=== PATIENT | female | born 1950 | race Caucasian/White ===

== ENCOUNTER 2017-04-03 09:45 | Inpatient (IN) | payer MEDICARE ==
[~2017-04-03] VITALS: Ht 162.6 cm; Wt 59.0 kg
[~2017-04-03 09:45] MED LIST: BUDE10.2 IH; HYDR-2762 PO; HYDR-971 PO; IBUP200C9 PO; LEVO500T8 PO; LOSA100T6 PO; PRED50TA PO
[2017-04-03] MEDS ORDERED: IPRATRPIUM/ALBUTEROL 0.5/2.5MG 3 ML NEBU. ONE (09:55)
[2017-04-03 10:15] LABS: BASO # 0.1 x10^3/uL (0.0-0.2); BASO % 1 % (0-3); EOS % 2 % (0-3); HEMOGLOBIN 15.4 g/dL (12.0-15.5); LYMPH # 3.8 x10^3/uL (1.0-4.8); LYMPH % 36 % (24-48); MEAN CORPUSCULAR HEMOGLOBIN 31 pg (25-35); MEAN CORPUSCULAR HGB CONC 33 g/dL (31-37); MEAN CORPUSCULAR VOLUME 95 fL (79-100); MONO % 5 % (0-9); NEUT % 57 % (31-73); PLATELET COUNT 162 x10^3/uL (140-400); RED BLOOD COUNT 4.95 x10^6/uL (3.50-5.40); WHITE BLOOD COUNT 10.5 x10^3/uL (4.0-11.0)
[2017-04-03] MEDS ORDERED: ALBUTEROL SULFATE 2.5 MG/3 ML NEBU. NEB ONE (10:30)
[2017-04-03] MEDS ORDERED: predniSONE 10 MG TABLET PO ONE (10:30)
[2017-04-03] MEDS ORDERED: IPRATRPIUM/ALBUTEROL 0.5/2.5MG 3 ML NEBU. NEB ONE (10:30)
[2017-04-03 10:34] LABS: CALCIUM 9.1 mg/dL (8.5-10.1); CREATININE 1.1 mg/dL (0.6-1.0); GFR 49.7; POTASSIUM 4.4 mmol/L (3.5-5.1)
[2017-04-03 10:38] LABS: PROTHROMBIN TIME PATIENT 12.9 SEC (11.7-14.0)
[2017-04-03 10:40] LABS: ALBUMIN 3.8 g/dL (3.4-5.0); ALBUMIN/GLOBULIN RATIO 1.1 (1.0-1.7); MAGNESIUM 2.1 mg/dL (1.8-2.4); TOTAL BILIRUBIN 0.9 mg/dL (0.2-1.0); TOTAL PROTEIN 7.3 g/dL (6.4-8.2)
--- NOTE | 2017-04-03 10:44 | EKG ---
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
--- NOTE | 2017-04-03 10:46 | RAD ---
Portable chest, 04/03/2017: History: Shortness of breath, congestive heart failure Comparison is made to a study from 01/25/2015. The heart size and pulmonary vascularity are normal. No pulmonary infiltrates are seen. There is no evidence of pleural fluid. Mild spurring is present in the spine. IMPRESSION: No acute cardiopulmonary abnormality is detected.
[2017-04-03] MEDS ORDERED: ACETAMINOPHEN 500 MG TABLET PO ONE (12:30)
[2017-04-03 12:48] VITALS: BP 116/75
[2017-04-03 12:49] VITALS: BP 116/75
[2017-04-03] MEDS ORDERED: FLUT1DIS3 IH (13:26)
[2017-04-03] MEDS ORDERED: ASPI-630 PO (13:26)
[2017-04-03] MEDS ORDERED: ATORVASTATIN CA80 MG PO (13:26)
[2017-04-03] MEDS ORDERED: METO-239 PO (13:26)
[2017-04-03] MEDS ORDERED: RAMI2.5C PO (13:26)
[2017-04-03] MEDS ORDERED: IOHEXOL 300 MG/ML 75 ML VIAL IV ONE (13:30)
[2017-04-03] MEDS ORDERED: CONTRAST GIVEN MC PRN (13:45)
--- NOTE | 2017-04-03 13:47 | CONS ---
DATE OF CONSULTATION: ATTENDING PHYSICIAN: Dr. Renee. REASON FOR CONSULTATION: Syncope, COPD. HISTORY OF PRESENT ILLNESS: The patient is a pleasant 66-year-old female with history of tobacco use for 40 years and continues to smoke cigarettes and has underlying COPD. She is not on home oxygen. She was brought into the hospital after she had a syncopal episode. She was seen by her who initially had heard that she was moaning, and then, she could not follow any more commands and then lost consciousness. She was brought in to the ER by EMS. At present, she is fully awake, following commands. She is on room air. Her blood sugars were not low. Her chest x-ray did not reveal any acute infiltrates. The patient had a similar episode happened seven months ago. At that time, she was evaluated at and according to the patient, she had extensive workup and could not find any etiology. She declined to have an ABG done. She said she even had a cardiac cath at , and Dr. Renee has all the records. PAST MEDICAL HISTORY: Significant for COPD, suspect moderate to severe. History of hypertension. History of a lung nodule, being followed up and stable in 2016. History of rheumatic fever in childhood. PAST SURGICAL HISTORY: Appendectomy, hysterectomy, knee surgery and back surgery. ALLERGIES: None to any medications. REVIEW OF SYSTEMS: Twelve-point systems obtained, pertinent positives discussed in my history of present illness, otherwise noncontributory. All systems that were negative were reviewed as well. SOCIAL HISTORY: Smoker for 40 years and continues to smoke cigarettes a pack per day. FAMILY HISTORY: Noncontributory to lungs. PHYSICAL EXAMINATION: GENERAL: She is awake, following commands. No obvious respiratory distress. VITAL SIGNS: She is currently on room air. Blood pressure 116/75, afebrile, pulse ox 98% on room air. NECK: Supple. LUNGS: Clear. CARDIOVASCULAR: Regular rate and rhythm. ABDOMEN: Soft, nontender. EXTREMITIES: No pitting edema. LABORATORY DATA: Reviewed. White cell count 10.5, hemoglobin is 15.4 and platelets are 162. BUN 11, creatinine 1.1. IMPRESSION: 1. Syncopal episode of unclear etiology. Similar occurrences happened 7 months ago when she was evaluated at , and according to the patient's history, a thorough workup was performed including cardiac catheterization and no etiology was obvious. At present, her blood sugars are normal. I do not suspect that she has hypercarbia as her bicarbonate level was normal, although she does decline to have ABGs. Clinically, it does not look like a stroke as she has no focal weakness. Thromboembolic disease would be in the differential diagnosis, but clinically less likely, but will obtain V/Q scan. 2. History of a stable nodule, being followed up by Dr. Renee. I reviewed the last CT chest in 2015. The radiologist reported a small nodule in the left lower lobe. We will follow another CT chest RECOMMENDATIONS: 1. Obtain CTA chest to rule out any thromboembolic disease which may have contributed to a syncopal episode and to f/u on nodule LLL 2. Obtain records from to see the workup that was performed for syncope at that institution. 3. Continue bronchodilators. 4. Smoking cessation counseling provided, but she declines to quit cigarettes. 5. PFTs as an outpatient. 6. Consider cardiology evaluation for syncope. 7. Also consider neurology consultation for workup of syncope. 8. Discussed with the patient's and will follow along with you. Discussed with RN. KEEGAN MONTAGUE MD DR: RANDALL/theodora JOB#: [id number] / [id number] MARY
[2017-04-03 14:53] VITALS: BP 107/52
--- NOTE | 2017-04-03 15:04 | RAD ---
PQRS Compliance Statement: One or more of the following individualized dose reduction techniques were utilized for this examination: 1. Automated exposure control 2. Adjustment of the mA and/or kV according to patient size 3. Use of iterative reconstruction technique CTA of the chest with contrast, 04/03/2017: History: Shortness of breath, syncope Multidetector CT imaging was performed following an IV bolus injection of iodinated contrast material. Multiplanar reconstructions were produced including coronal MIP images. Comparison is made to a study from 01/28/2016. The central pulmonary arteries are well opacified and no filling defects are seen to suggest pulmonary emboli. There is mild calcific plaquing of the thoracic aorta without evidence of aneurysm. Minimal coronary artery calcifications are noted. There are calcified mediastinal and right hilar lymph nodes compatible with granulomatous disease. No pathologically enlarged mediastinal nodes are seen. There are emphysematous changes in the lungs. There are granulomatous calcifications in the right chest. Mild bilateral apical pleural-parenchymal opacities are probably scars. There is minimal new streaky atelectasis or scarring medially in the left lower lobe. A tiny 3 mm nodule described in the left lower lobe on the previous study is unchanged. There is no evidence of pleural fluid. There are moderate scattered degenerative changes in the spine. IMPRESSION: 1. No CT evidence of central pulmonary emboli. 2. Emphysema with mild bilateral pleural/parenchymal scarring.
--- NOTE | 2017-04-03 15:38 | PHYS DOC ---
Past Medical History Past Medical History: CHF, COPD, Hypertension, Other Additional Past Medical Histor: RHEUMATIC FEVER (CHILDHOOD) Past Surgical History: Appendectomy, Hysterectomy, Other Additional Past Surgical Histo: KNEE SURGERY, BACK SURGERY 2X, Alcohol Use: None Drug Use: None Adult General Chief Complaint Chief Complaint: DYSPNEA/RESPIRATOY DISTRESS HPI HPI Patient is a 66 year old female who presents with shortness of breath. Pt reports she couldn't catch her breath this morning and brought in by EMS. Initially the report was for shortness of breath alone, but then reports that this morning the patient was acting strange and not responding to him appropriately. Pt reports she does not report this happening and didn't remember getting into the ambulance. First memory was while in the ambulance. Pt with mild cough, increasing recent SOB, continues to smoke, h/o COPD but doesn't wear home oxygen. Review of Systems Review of Systems Constitutional: Denies fever or chills [] Eyes: Denies change in visual acuity, redness, or eye pain [] HENT: Denies nasal congestion or sore throat [] Respiratory:reports sob Cardiovascular: denies chest pain GI: Denies abdominal pain, nausea, vomiting, bloody stools or diarrhea [] : Denies dysuria or hematuria [] Musculoskeletal: Denies back pain or joint pain [] Integument: Denies rash or skin lesions [] Neurologic: Denies headache, focal weakness or sensory changes [] Current Medications Current Medications Current Medications Medications (Trade) Dose Ordered Sig/Arturo Start Time Stop Time Status Last Admin Dose Admin Albuterol Sulfate (Ventolin Neb Soln) 2.5 mg 1X ONCE 04/03/17 10:30 04/03/17 10:31 DC 04/03/17 10:04 2.5 MG Albuterol/ Ipratropium (Duoneb) 3 ml 1X ONCE 04/03/17 10:30 04/03/17 10:31 DC Prednisone (Prednisone) 50 mg 1X ONCE 04/03/17 10:30 04/03/17 10:31 DC 04/03/17 10:40 50 MG Allergies Allergies Allergies Coded Allergies Type Severity Reaction Last Updated Verified No Known Drug Allergies 05/05/14 No Physical Exam Physical Exam Constitutional: Well developed, well nourished,anxious, tachypnic HENT: Normocephalic, atraumatic, bilateral external ears normal, oropharynx moist, no oral exudates, nose normal. [] Eyes: PERRLA, EOMI, conjunctiva normal, no discharge. [] Neck: Normal range of motion, no tenderness, supple, no stridor. [] Cardiovascular:Heart rate regular rhythm, no murmur [] Lungs & Thorax: Bilateral breath sounds, moderate air movement, exp wheeze Abdomen: Bowel sounds normal, soft, no tenderness, no masses, no pulsatile masses. [] Skin: Warm, dry, no erythema, no rash. [] Back: No tenderness, no CVA tenderness. [] Extremities: No tenderness, no cyanosis, no clubbing, ROM intact, no edema. [] Neurologic: Alert and oriented X 3, normal motor function, normal sensory function, no focal deficits noted. [] Psychologic: Affect normal, judgement normal, mood normal. [] Current Patient Data Vital Signs Vital Signs Date Time Temp Pulse Resp B/P (MAP) Pulse Ox O2 Delivery O2 Flow Rate FiO2 04/03/17 11:15 99 119/65 (83) 99 Room Air 04/03/17 10:12 97.6 32 97.6 Lab Values Laboratory Tests Test 04/03/17 10:05 White Blood Count 10.5 x10^3/uL (4.0-11.0) Red Blood Count 4.95 x10^6/uL (3.50-5.40) Hemoglobin 15.4 g/dL (12.0-15.5) Hematocrit 47.0 % (36.0-47.0) Mean Corpuscular Volume 95 fL (79-100) Mean Corpuscular Hemoglobin 31 pg (25-35) Mean Corpuscular Hemoglobin Concent 33 g/dL (31-37) Red Cell Distribution Width 15.0 % (11.5-14.5) H Platelet Count 162 x10^3/uL (140-400) Neutrophils (%) (Auto) 57 % (31-73) Lymphocytes (%) (Auto) 36 % (24-48) Monocytes (%) (Auto) 5 % (0-9) Eosinophils (%) (Auto) 2 % (0-3) Basophils (%) (Auto) 1 % (0-3) Neutrophils # (Auto) 6.0 x10^3uL (1.8-7.7) Lymphocytes # (Auto) 3.8 x10^3/uL (1.0-4.8) Monocytes # (Auto) 0.5 x10^3/uL (0.0-1.1) Eosinophils # (Auto) 0.2 x10^3/uL (0.0-0.7) Basophils # (Auto) 0.1 x10^3/uL (0.0-0.2) Prothrombin Time 12.9 SEC (11.7-14.0) Prothrombin Time INR 1.0 (0.8-1.1) Sodium Level 142 mmol/L (136-145) Potassium Level 4.4 mmol/L (3.5-5.1) Chloride Level 105 mmol/L (98-107) Carbon Dioxide Level 27 mmol/L (21-32) Anion Gap 10 (6-14) Blood Urea Nitrogen 11 mg/dL (7-20) Creatinine 1.1 mg/dL (0.6-1.0) H Estimated GFR (Cockcroft-Gault) 49.7 BUN/Creatinine Ratio 10 (6-20) Glucose Level 149 mg/dL (70-99) H Calcium Level 9.1 mg/dL (8.5-10.1) Magnesium Level 2.1 mg/dL (1.8-2.4) Total Bilirubin 0.9 mg/dL (0.2-1.0) Aspartate Amino Transferase (AST) 30 U/L (15-37) Alanine Aminotransferase (ALT) 41 U/L (14-59) Alkaline Phosphatase 141 U/L (46-116) H LE-Jjl-B-Type Natriuretic Peptide 466 pg/mL (0-124) H Total Protein 7.3 g/dL (6.4-8.2) Albumin 3.8 g/dL (3.4-5.0) Albumin/Globulin Ratio 1.1 (1.0-1.7) Laboratory Tests 04/03/17 10:05 Laboratory Tests 04/03/17 10:05 EKG EKG 84 bpm, sinus, normal axis, normal intervals, no ST elevation or depression, noNischemic T waves, interpreted by me[] Radiology/Procedures Radiology/Procedures CXR: IMPRESSION: No acute cardiopulmonary abnormality is detected. [] Course & Med Decision Making Course & Med Decision Making Pertinent Labs and Imaging studies reviewed. (See chart for details) She was continued on breathing treatments and given prednisone. Her symptoms appeared to significantly improved. No acute findings on ED workup. then gave a different story of what occurred this morning other than just shortness of breath. The patient reportedly was altered and unresponsive and patient does not recall what happened on the way to the hospital until she was in the ambulance. I don't know if the patient had a syncopal episode, I spoke with Dr. Torres who accepted this patient for admission and recommended a pulmonary consult. Dragon Disclaimer Dragon Disclaimer This electronic medical record was generated, in whole or in part, using a voice recognition dictation system. Departure Departure Impression: Primary Impression: COPD (chronic obstructive pulmonary disease) Disposition: ADMITTED INPATIENT Condition: STABLE Referrals: ALLEN TORRES MD (PCP) KE WALLACE MD Apr 03, 2017 15:38
[2017-04-03 19:25] VITALS: BP 106/65
[2017-04-03 23:30] VITALS: BP 112/64
[2017-04-04 03:35] VITALS: BP 115/66
[2017-04-04 07:33] VITALS: BP 122/75
--- NOTE | 2017-04-04 10:38 | PDOC ---
GENERAL General: see dictated H&P. encephalopathy at home prior to admission with cause unclear. similar to episode earlier this year at [facility] with negative marroquin and apparently included heart cath that was normal and normal carotid dopplers per patient. trying to get those records currently. cardiology consulted for elevated troponin and neurology for encephalopathy. Problems: VITAL SIGNS Vital Signs: Vital Signs Date Time Temp Pulse Resp B/P (MAP) Pulse Ox O2 Delivery O2 Flow Rate FiO2 04/04/17 08:00 Room Air 04/04/17 07:33 98.1 65 18 122/75 (91) 97 98.1 ALLERGIES Allergies: Allergies Coded Allergies Type Severity Reaction Last Updated Verified No Known Drug Allergies 05/05/14 No MEDS Medications: Current Medications Medications (Trade) Dose Ordered Sig/Arturo Start Time Stop Time Status Last Admin Dose Admin Acetaminophen (Tylenol) 1,000 mg 1X ONCE 04/03/17 12:30 04/03/17 12:31 DC Albuterol Sulfate (Ventolin Neb Soln) 2.5 mg 1X ONCE 04/03/17 10:30 04/03/17 10:31 DC 04/03/17 10:04 2.5 MG Albuterol/ Ipratropium (Duoneb) 3 ml RTQID 04/04/17 12:00 Info (Do NOT chart on this entry -- for MONITORING) 1 each PRN DAILY PRN 04/03/17 13:45 04/05/17 13:44 Iohexol (Omnipaque 300 Mg/ml) 60 ml 1X ONCE 04/03/17 13:30 04/03/17 13:31 DC Prednisone (Prednisone) 50 mg 1X ONCE 04/03/17 10:30 04/03/17 10:31 DC 04/03/17 10:40 50 MG LAB Lab: Laboratory Tests Test 04/03/17 18:30 04/04/17 00:05 04/04/17 04:00 Troponin I Quantitative 2.561 ng/mL (0.000-0.055) 2.274 ng/mL (0.000-0.055) 1.978 ng/mL (0.000-0.055) ALLEN TORRES MD Apr 04, 2017 10:38
[2017-04-04] MEDS: IPRATRPIUM/ALBUTEROL 0.5/2.5MG 3 ML NEBU. NEB SCH ×3 (10:59→19:42)
[2017-04-04 11:00] VITALS: BP 118/65
[2017-04-04] MEDS: LISINOPRIL 5 MG TABLET. PO SCH (11:00)
--- NOTE | 2017-04-04 11:02 | PDOC2 ---
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 She denies any memory of the event or preceding symptoms. Her last memory was getting up the the restroom but not feeling like being up for the day so going back to bed. He reports that she had gotten up and heard her moving around then some time later he thought he heard her moaning so went to check. He found her in bed, not purposefully responsive initially and saying help me over and over. He reports attempting to sit her up but she was unable to even follow simple commands. He then called EMS. He says she was sweaty and clammy and with shallow rapid respirations. She apparently had a similar episode about 7 months ago for which she was evaluated at . She reports being told that her heart was weak and probably caused by a virus but improved before she left. She reports a normal heart cath and EEG during that admission. She followed up once outpatient but has not gone back. She reports dyspnea on exertion usually improved with inhalers. She reports 2 pillow orthopnea but has chronically slept on 2 pillows due to sinus drainage. Her reports she does snore but no history of witnessed apnea. She denies any palpitations, lightheadedness or syncope other than the above episodes. PAST MEDICAL HISTORY Past Medical History COPD, lung nodule, rheumatic fever as a child PAST SURGICAL HISTORY Past Surgical History: Appendectomy, Hysterectomy, Other (knee and back surgery ) SOCIAL HISTORY Social History + tobaccoism, no significant ETOH, no illicit drugs CURRENT MEDICATIONS CURRENT MEDICATIONS Home cardiac meds include metoprolol, aspirin, atorvastatin, ramipril ALLERGIES ALLERGIES: Coded Allergies: No Known Drug Allergies (Unverified , 05/05/14) ROS Review of System as per HPI PHYSICAL EXAM General: Alert, Oriented X3, Cooperative, No acute distress HEENT: Atraumatic, EOMI, Mucous membr. moist/pink Lungs: Other (decreased bilaterally) Heart: Regular rate, Normal S1, Normal S2, Other (no gallops, no significant murmurs, no clicks or rubs) Abdomen: Normal bowel sounds, Soft, No tenderness Extremities: No cyanosis, No edema, Normal pulses Neuro: Normal speech, Strength at 5/5 X4 ext Psych/Mental Status: Mental status NL, Mood NL VITALS VITALS Vital Signs Date Time Temp Pulse Resp B/P (MAP) Pulse Ox O2 Delivery O2 Flow Rate FiO2 04/04/17 08:00 Room Air 04/04/17 07:33 98.1 65 18 122/75 (91) 97 98.1 LABS Lab: Laboratory Tests Test 04/03/17 18:30 04/04/17 00:05 04/04/17 04:00 Troponin I Quantitative 2.561 ng/mL (0.000-0.055) 2.274 ng/mL (0.000-0.055) 1.978 ng/mL (0.000-0.055) IMAGES IMAGES CXR - no acute disease CT - no PE, emphysema with mild bilateral scarring EKG EKG sinus rhythm without acute abn. ASSESSMENT/PLAN ASSESSMENT/PLAN 1. NSTEMI 2. Syncope 3. hypertension 4. hyperlipidemia 5. COPD Based on her history suspect non ischemic cardiomyopathy. Will request records and repeat echocardiogram. Possible syncopal episodes related to arrhythmias. Await echo but would at the least need an outpatient event monitoring. If EF remains low would need life vest and/or AICD. Continue current medications and await records. Problems: NAE DHILLON MD 04/04/17 1811: CARDIAC CONSULT ALLERGIES ALLERGIES: Coded Allergies: No Known Drug Allergies (Unverified , 05/05/14) ASSESSMENT/PLAN ASSESSMENT/PLAN Pt. seen and examined. Agree with above SEMICONDUCTOR DIES LOADER note. Reviewed [facility] records from 08/2016. NICM. ? Takatsubo. Await echo here. Continue home meds. Monitor on Tele. Likely needs to be discharged on lifevest given cardiomyopathy and syncope. Will follow along. Thanks for consult. Problems: WENDIE ALVARADO APRN Apr 04, 2017 11:02 NAE DHILLON MD Apr 04, 2017 18:11
[2017-04-04] MEDS: BUDESONIDE 0.5 MG/2 ML NEBU. NEB SCH ×2 (11:56→19:42)
[2017-04-04] MEDS ORDERED: ALBUTEROL SULFATE 2.5 MG/3 ML NEBU. NEB SCH (12:00)
[2017-04-04] MEDS: ASPIRIN CHEWABLE 81 MG TABLET. PO SCH (12:13)
[2017-04-04] MEDS: METOPROLOL SUCC 24HR ER 25 MG TAB.ER.24H. PO SCH (12:13)
--- NOTE | 2017-04-04 13:22 | HP ---
ADMIT DATE: 04/03/2017 CHIEF COMPLAINT AND HISTORY OF PRESENT ILLNESS: This 66-year-old white female is well known to me from followup in the office. The patient was admitted through the Emergency Room with shortness of breath and respiratory distress. Briefly, the patient had gotten up at 8:00 a.m., on the morning of admission to urinate and had been fine. Her found her in bed, not too long after that unresponsive and short of breath. She had a similar episode months ago, worked up at , which at that time at least included a heart catheterization, which was reported normal per the family. She states she does not remember the EMS being at the home, but does remember may be a coming on the ambulance to the Emergency Room with them telling her to slow down her breathing and breathe deep as they were placing an IV. She has recovered from mental status and had pretty unremarkable workup in the Emergency Room, although her troponin has bumped up since admission. PAST MEDICAL HISTORY: Remarkable for COPD, hypertension, history of congestive heart failure. She has a history of rheumatic fever as a child. PAST SURGICAL HISTORY: Remarkable for prior knee surgery, back surgery, appendectomy, hysterectomy. MEDICATIONS: Brought with the patient, listed on the computer and have been addressed. ALLERGIES: She has no known drug allergies. SOCIAL HISTORY: She is a daily smoker, nondrinker, does not use drugs. , lives at home with her . FAMILY HISTORY: Noncontributory. REVIEW OF SYSTEMS: Remarkable primarily for some shortness of breath and a cough leading up to this, she feels like she has had more of a cough than usual, but otherwise has been in her regular state with no review of systems findings otherwise. PHYSICAL EXAMINATION: GENERAL: She is a well-developed, well-nourished white female, in no acute distress. VITAL SIGNS: Stable. She is afebrile. HEAD, EYES, EARS, NOSE AND THROAT: Unremarkable. NECK: Supple without adenopathy or thyromegaly. CHEST: Reveals decreased breath sounds, but clear. HEART: Regular rate and rhythm without S3, S4 or murmur. ABDOMEN: Soft, nontender, without hepatosplenomegaly or mass. EXTREMITIES: Without cyanosis, clubbing or edema. NEUROLOGIC: She is intact. IMPRESSION: Encephalopathic spell of uncertain etiology at this point in time with associated shortness of breath. She has had a bump in her troponin since admission, but again a story with a normal heart cath apparently at . PLAN: The patient has been admitted. Pulmonary and Cardiology have been consulted. I am going to ask Neurology to see her in addition. We are going to obtain records from to better what happened over the real issue, and the patient will be monitored, managed and treated appropriately. ALLEN TORRES MD DR: JACKELYN/theodora JOB#: [id number] / [id number]
[2017-04-04 15:25] VITALS: BP 117/63
--- NOTE | 2017-04-04 17:06 | PDOC ---
PULMONARY PROGRESS NOTES Subjective PT AT TIMES SOA Vitals Vital Signs Date Time Temp Pulse Resp B/P (MAP) Pulse Ox O2 Delivery O2 Flow Rate FiO2 04/04/17 15:25 98.1 68 18 117/63 (81) 96 Room Air 98.1 ROS: No Nausea, No Chest Pain, No Abdominal Pain, No Increase Cough Lungs: Wheezing Cardiovascular: S1, S2 Abdomen: Soft, Non-tender Neuro Exam: Alert Extremities: No Edema Skin: Warm Labs Laboratory Tests Test 04/03/17 10:05 04/03/17 18:30 04/04/17 00:05 04/04/17 04:00 White Blood Count 10.5 x10^3/uL (4.0-11.0) Red Blood Count 4.95 x10^6/uL (3.50-5.40) Hemoglobin 15.4 g/dL (12.0-15.5) Hematocrit 47.0 % (36.0-47.0) Mean Corpuscular Volume 95 fL (79-100) Mean Corpuscular Hemoglobin 31 pg (25-35) Mean Corpuscular Hemoglobin Concent 33 g/dL (31-37) Red Cell Distribution Width 15.0 % (11.5-14.5) Platelet Count 162 x10^3/uL (140-400) Neutrophils (%) (Auto) 57 % (31-73) Lymphocytes (%) (Auto) 36 % (24-48) Monocytes (%) (Auto) 5 % (0-9) Eosinophils (%) (Auto) 2 % (0-3) Basophils (%) (Auto) 1 % (0-3) Neutrophils # (Auto) 6.0 x10^3uL (1.8-7.7) Lymphocytes # (Auto) 3.8 x10^3/uL (1.0-4.8) Monocytes # (Auto) 0.5 x10^3/uL (0.0-1.1) Eosinophils # (Auto) 0.2 x10^3/uL (0.0-0.7) Basophils # (Auto) 0.1 x10^3/uL (0.0-0.2) Prothrombin Time 12.9 SEC (11.7-14.0) Prothromb Time International Ratio 1.0 (0.8-1.1) Sodium Level 142 mmol/L (136-145) Potassium Level 4.4 mmol/L (3.5-5.1) Chloride Level 105 mmol/L (98-107) Carbon Dioxide Level 27 mmol/L (21-32) Anion Gap 10 (6-14) Blood Urea Nitrogen 11 mg/dL (7-20) Creatinine 1.1 mg/dL (0.6-1.0) Estimated GFR (Cockcroft-Gault) 49.7 BUN/Creatinine Ratio 10 (6-20) Glucose Level 149 mg/dL (70-99) Calcium Level 9.1 mg/dL (8.5-10.1) Magnesium Level 2.1 mg/dL (1.8-2.4) Total Bilirubin 0.9 mg/dL (0.2-1.0) Aspartate Amino Transf (AST/SGOT) 30 U/L (15-37) Alanine Aminotransferase (ALT/SGPT) 41 U/L (14-59) Alkaline Phosphatase 141 U/L (46-116) YW-Cqv-B-Type Natriuretic Peptide 466 pg/mL (0-124) Total Protein 7.3 g/dL (6.4-8.2) Albumin 3.8 g/dL (3.4-5.0) Albumin/Globulin Ratio 1.1 (1.0-1.7) Troponin I Quantitative 2.561 ng/mL (0.000-0.055) 2.274 ng/mL (0.000-0.055) 1.978 ng/mL (0.000-0.055) Test 04/04/17 10:29 Troponin I Quantitative 2.108 ng/mL (0.000-0.055) Laboratory Tests Test 04/03/17 18:30 04/04/17 00:05 04/04/17 04:00 04/04/17 10:29 Troponin I Quantitative 2.561 ng/mL (0.000-0.055) 2.274 ng/mL (0.000-0.055) 1.978 ng/mL (0.000-0.055) 2.108 ng/mL (0.000-0.055) Medications Active Scripts Medications Dose Route/Sig Max Daily Dose Days Date Category Atorvastatin Calcium 80 Mg Tablet 80 Mg PO HS 04/03/17 Reported Metoprolol Succinate ( Xl ) (Metoprolol Succinate) 25 Mg Tab.er.24h 1 Tab PO DAILY 04/03/17 Reported Ramipril 2.5 Mg Capsule 1 Cap PO DAILY 04/03/17 Reported Aspirin 81 Mg Tab.chew 1 Tab PO DAILY 04/03/17 Reported Advair 250-50 Diskus (Fluticasone/Salmeterol) 1 Each Disk.w.dev 1 Puff IH BID 04/03/17 Reported Impression . IMPRESSION: 1. Syncope 2. History of a stable nodule, being followed up by Dr. Renee. I reviewed the last CT chest in 2015. 3. AECOPD CT CHEST 1. No CT evidence of central pulmonary emboli. 2. Emphysema with mild bilateral pleural/parenchymal scarring. Plan . 1. Obtain CTA REVIEWED NO PE NO NODULES 2. D/C SMOKING 3. Continue bronchodilators. 4. Smoking cessation counseling provided, but she declines to quit cigarettes. 5. PFTs as an outpatient. ANNIE MITCHELL MD Apr 04, 2017 17:06
[2017-04-04 19:21] VITALS: BP 118/70
[2017-04-04] MEDS ORDERED: NON FORMULARY ITEM (Fluticasone/Salmeterol (Advair 250-50 Diskus) 1 PUFF) IH SCH (21:00)
[2017-04-04] MEDS ORDERED: ATORVASTATIN CALCIUM 40 MG TABLET. PO SCH (21:00)
[2017-04-04 22:18] VITALS: BP 114/63
--- NOTE | 2017-04-05 00:49 | CONS ---
DATE OF CONSULTATION: 04/04/2017 REFERRING PHYSICIAN: Dr. Renee. REASON FOR CONSULTATION: Episode of syncope, evaluate for stroke. HISTORY OF PRESENT ILLNESS: The patient is a very pleasant 66-year-old woman who presented through the Emergency Room last night. Both she and her were valuable historians. She remembers going to bed last night without any extenuating circumstance. She awoke in the night to go to the bathroom, which she did without any difficulty. She awoke at 8:00 a.m. to the smell of her brewing coffee. She got up and decided that she really did not want to be up at this hour and went and lied back down. Her heard moaning noises coming from the bedroom. He went back into the bedroom to see if something was wrong. He noted that she was thrashing about. She was stating "help me help me" and was incoherent. She was clammy and sweaty and had been incontinent of urine. Her breathing was very rapid. He called 911 and paramedics arrived. Her first memory is waking up in the ambulance, but memories were spotty. She also remembers being in the Emergency Room, but the memories were somewhat spotty. The last memory before waking up in the ambulance was deciding to go back to bed at 8:00 a.m. She is not aware of any extenuating circumstance. Of note is that she had a similar spell 7 months ago. She was at [facility]. They were kind enough to send records, which I reviewed. She underwent extensive cardiac investigation including a cardiac catheterization. She did have a cardiomyopathy, which was felt to be nonischemic. Her cardiac did improve and her explanation is that she had had a virus that had affected her heart temporarily. She also underwent a CAT scan and 2 MRI of her brain. The MRI of the brain was abnormal revealing prior strokes of the right casillas radiata, right parietal cortical region and bilateral cerebellar regions. The first MRI was performed on 09/04/2016 with the second being performed on 09/08/2016. The second MRI showed no interval change. This was also performed along with an MRA of the head and neck, which did not reveal aneurysm or any critical stenosis. She believes she had an EEG, but I did not see the result of that with the records that were sent. Of note is that her initial lactic acid was elevated to 6. She is completely back to normal and was so by the time her arrived in the Emergency Room. There was no tongue biting. PAST MEDICAL HISTORY: 1. Admitted the [facility] in August 2016 with the spell of syncope. 2. Chronic obstructive pulmonary disease. 3. Spells of dizziness, which improved after she started inhalers for the chronic obstructive pulmonary disease. 4. Hypertension. 5. History of nonischemic cardiomyopathy with congestive heart failure. 6. History of rheumatic fever as a child. 7. Prior knee surgery. 8. Prior lower back surgery. 9. Appendectomy. 10. Hysterectomy. ALLERGIES: No known allergies to drugs. MEDICATIONS PRIOR TO ADMISSION: Aspirin 81 mg, atorvastatin 80 mg, Advair twice per day, metoprolol and ramipril 2.5 mg. FAMILY HISTORY: Her mother of lung cancer. Her father of prostate cancer. Her brother of bladder cancer. Heart disease runs strongly on the mother side of the family. SOCIAL HISTORY: She is . She smokes a pack of cigarettes per day. She does not drink alcohol or use recreational drugs. She has 2 children, 3 grandchildren and 3 great grandchildren. REVIEW OF SYSTEMS: She has a headache, but it is not unusual, occasionally have headaches. She has had no change of vision or hearing. She has not had any cognitive changes other than associated with the spells. She does not have any nose or sinus trouble. She has been able to swallow, but big pills are more difficult. She has had shortness of breath with exertion. She does not have chest or abdominal pain. 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 She has lower back pain. She has not had any fever or rash. She denies any gastrointestinal or genitourinary complaints. She does not complain of easy bruising or bleeding. She does not normally have swelling. She denies any psychiatric concerns. She does not complain of any focal weakness or numbness. PHYSICAL EXAMINATION: VITAL SIGNS: The blood pressure 117/63, pulse 68, respirations 18, temperature 98.1 degrees Fahrenheit. Oximetry was 96% on room air. Her weight was 130 pounds with a height of 64 inches and a calculated body mass index of 22.3. NEUROLOGIC: She was alert, awake and cooperative. Speech was fluent and clear. She had a good fund of recent and remote knowledge. Attention and concentration was intact. She appeared well-groomed and well-nourished. She was fully oriented. Examination of the cranial nerves revealed visual arnold were full to confrontation. Extraocular movements were intact. The eyes were conjugate. Pursuit movements were smooth and saccadic eye movements were without dysmetria. Pupils were 3 mm and reactive. Funduscopic exam did not reveal papilledema, exudate or hemorrhage. Facial sensation was intact bilaterally. The muscles of mastication and facial expression were powerful symmetrically. Hearing was intact to finger rub. The palate arched symmetrically and the tongue was midline with full range of motion. Sternocleidomastoid and trapezius were powerful. Muscle bulk and tone was normal. There was no arm or leg drift. The power was full and symmetric in the upper and lower extremities. Reflexes were 2/4 and symmetric in the upper extremities and at the knees, but were absent at both ankles. The toes were downgoing bilaterally. Coordination testing with [id number], dslw-ve-oqvy, fine motor and rapid alternating movements were well performed. Sensory exam was intact to pain, light touch, proprioception, graphesthesia, cold thermal and vibration. There was no extinction to double simultaneous stimulation. The gait was of a normal base and was steady. She was able to heel and toe walk. She could take several steps and tandem. Romberg stance was negative. Auscultation of the carotid arteries did not reveal a bruit. HEART: Rhythm was regular without a murmur. EXTREMITIES: Peripheral pulses were symmetric. There was no edema or cyanosis of the extremities. REVIEW OF LABORATORY DATA: CBC revealed a normal white blood cell count, hemoglobin, hematocrit and platelet count. BNP was elevated at 466. Troponin was elevated to 2.561. PT/INR was 1 and PTT was 12.9. The electrolytes were normal. BUN was 11 and creatinine elevated at 1.1. The GFR calculated at 49.7. Glucose was elevated at 149. ____ and magnesium were normal. Alkaline phosphatase was elevated at 141. The total protein and albumin were normal. Chest x-ray revealed no acute cardiopulmonary process. CTA of the chest revealed no pulmonary embolus. There was emphysema and mild bilateral pleural/parenchymal scarring. IMPRESSION: The patient is a pleasant 66-year-old woman who has now had 2 spells of syncope followed by confusion. The most recent spell is very suspicious for unwitnessed seizure. She may have had a brief generalized seizure followed by postictal confusion. She was incontinent of urine, although there was no tongue biting. The initial spell seemed to be associated with a cardiomyopathy as well. This seemed to recover in a number of days. An echocardiogram is planned, but is pending at the time of this dictation. She has previously undergone 2 MRI of her brain, 1 on the 04 of September and the other on the . These revealed evidence of some small strokes, but nothing acute. There was no evidence of tumor. She reports an EEG that was not revealing. Unfortunately, the spells were 7 months apart, so it would be difficult to know if medication were affective with such a time between spells. RECOMMENDATIONS: I can order an EEG for Thursday if she is still an inpatient to evaluate for seizure. If she has been dismissed, this could be done as an outpatient. I will await the remainder of the investigation before determining if we want to empirically initiate an anticonvulsant. I would consider medications such as levetiracetam 500 mg twice per day. Obtain an MRI brain with and without contrast to evaluate for acute tumor or other intracranial process. We can obtain orthostatic blood pressure measurements as well. I will await the result of the echocardiogram. I appreciate being involved in her care. JACQUELINE MCCONNELL MD DR: MONA/theodora JOB#: [id number] / [id number] Dr. Naz [address]ays Dr.
[2017-04-05 02:48] VITALS: BP 124/55
--- NOTE | 2017-04-05 06:41 | PDOC ---
Provider Note Provider Note Case discussed with Dr. Betancourt from neurology. High suspicion for seizure activity. Does not appear to be arrhythmogenic at this time. No arrhythmias on tele. If EF is normalized by echo, can be discharged from cardiology perspective with close outpt f/u. If EF is still low , then will mail her a event monitor to rule out arrhythmias. NAE DHILLON MD Apr 05, 2017 06:41
[2017-04-05 07:00] VITALS: BP 104/63
[2017-04-05] MEDS: IPRATRPIUM/ALBUTEROL 0.5/2.5MG 3 ML NEBU. NEB SCH ×2 (07:58→11:43)
[2017-04-05] MEDS: BUDESONIDE 0.5 MG/2 ML NEBU. NEB SCH (07:58)
[2017-04-05] MEDS: ASPIRIN CHEWABLE 81 MG TABLET. PO SCH (08:50)
[2017-04-05] MEDS: LISINOPRIL 5 MG TABLET. PO SCH (08:51)
[2017-04-05] MEDS: METOPROLOL SUCC 24HR ER 25 MG TAB.ER.24H. PO SCH (08:51)
[2017-04-05 11:00] VITALS: BP 116/63
--- NOTE | 2017-04-05 12:27 | PDOC ---
GENERAL General: vss and afebile. awake and alert and in attendance. no further spells. no arrythmias since admit. [facility] records in hand and showed cardiomyopathy with normal coronary arteriograms. neuro and cardiology help appreciated. awaiting echo and EEG prior to dc being feasible. Problems: VITAL SIGNS Vital Signs: Vital Signs Date Time Temp Pulse Resp B/P (MAP) Pulse Ox O2 Delivery O2 Flow Rate FiO2 04/05/17 11:44 Room Air 04/05/17 11:00 97.8 78 18 116/63 (80) 97 97.8 ALLERGIES Allergies: Allergies Coded Allergies Type Severity Reaction Last Updated Verified No Known Drug Allergies 05/05/14 No MEDS Medications: Current Medications Medications (Trade) Dose Ordered Sig/Arturo Start Time Stop Time Status Last Admin Dose Admin Acetaminophen (Tylenol) 1,000 mg 1X ONCE 04/03/17 12:30 04/03/17 12:31 DC Albuterol Sulfate (Ventolin Neb Soln) 2.5 mg PRN Q2HR PRN 04/06/17 12:00 Albuterol/ Ipratropium (Duoneb) 3 ml RTQID 04/04/17 12:00 04/05/17 11:43 3 ML Aspirin (Children'S Aspirin) 81 mg DAILY 04/04/17 11:00 04/05/17 08:50 81 MG Atorvastatin Calcium (Lipitor) 80 mg QHS 04/04/17 21:00 04/04/17 19:39 80 MG Budesonide (Pulmicort) 0.5 mg RTBID 04/04/17 11:15 04/05/17 07:58 0.5 MG Info (Do NOT chart on this entry -- for MONITORING) 1 each PRN DAILY PRN 04/03/17 13:45 04/05/17 13:44 Iohexol (Omnipaque 300 Mg/ml) 60 ml 1X ONCE 04/03/17 13:30 04/03/17 13:31 DC Lisinopril (Prinivil) 5 mg DAILY 04/04/17 11:00 04/05/17 08:51 5 MG Metoprolol Succinate (Toprol Xl) 25 mg DAILY 04/04/17 11:00 04/05/17 08:51 25 MG Non-Formulary Medication 1 puff BID 04/04/17 21:00 04/04/17 21:00 DC Prednisone (Prednisone) 50 mg 1X ONCE 04/03/17 10:30 04/03/17 10:31 DC 04/03/17 10:40 50 MG ALLEN TORRES MD Apr 05, 2017 12:27
--- NOTE | 2017-04-05 14:01 | PDOC ---
PROGRESS NOTES Assessment 1. Episode of abnormal movement followed by postictal confusion and now back to normal. This is her second such episode. I am suspicious this may represent an unwitnessed generalized seizure with postictal confusion. She had a similar spell in August 2016 the investigation of which I have reviewed from [facility]. She did have MRIs of her brain at the time. The studies were negative. It's not clear if she ever had an EEG. 2. She may have had a viral cardiomyopathy in August 2016. A follow-up echocardiogram was not performed. Plan I would like her to have a sleep deprived EEG. This could potentially be done as an outpatient. I feel we should repeat the MRI brain with and without contrast to make sure there is no interval change from August 2016 such as the growth of a small tumor which was not previously seen. This could be done as an outpatient. She will need an echocardiogram to reevaluate for persistent cardiomyopathy or to see if there was resolution. She is hemodynamically stable and this could be done as an outpatient. From a neurologic perspective she could potentially be dismissed in these test arranged by her primary care physician for this next week. Subjective I feel just fine. I haven't had any further spells. I feel completely normal. Objective Vital Signs Date Time Temp Pulse Resp B/P (MAP) Pulse Ox O2 Delivery O2 Flow Rate FiO2 04/05/17 11:44 Room Air 04/05/17 11:00 97.8 78 18 116/63 (80) 97 97.8 PHYSICAL EXAM She was alert, awake and cooperative. Speech was fluent and clear. She had a good fund of recent and remote knowledge. Attention and concentration was intact. Her eyes were conjugate and face symmetric. Sitting balance was normal. Movements of the arms was symmetric and well coordinated. Review of Relevant I have reviewed the following items genny (where applicable) has been applied. Labs Laboratory Tests Test 04/03/17 18:30 04/04/17 00:05 04/04/17 04:00 04/04/17 10:29 Troponin I Quantitative 2.561 ng/mL (0.000-0.055) 2.274 ng/mL (0.000-0.055) 1.978 ng/mL (0.000-0.055) 2.108 ng/mL (0.000-0.055) Medications Current Medications Albuterol/ Ipratropium (Duoneb) 3 ml STK-MED ONCE .ROUTE ; Start 04/03/17 at 09: 55; Stop 04/03/17 at 09:56; Status DC Albuterol/ Ipratropium (Duoneb) 3 ml 1X ONCE NEB ; Start 04/03/17 at 10:30; Stop 04/03/17 at 10:31; Status DC Albuterol Sulfate (Ventolin Neb Soln) 2.5 mg 1X ONCE NEB Last administered on 04/03/17 10:04; Start 04/03/17 at 10:30; Stop 04/03/17 at 10:31; Status DC Prednisone (Prednisone) 50 mg 1X ONCE PO Last administered on 04/03/17 10:40 ; Start 04/03/17 at 10:30; Stop 04/03/17 at 10:31; Status DC Acetaminophen (Tylenol) 1,000 mg 1X ONCE PO ; Start 04/03/17 at 12:30; Stop at 12:31; Status DC Iohexol (Omnipaque 300 Mg/ml) 60 ml 1X ONCE IV ; Start 04/03/17 at 13:30; Stop 04/03/17 at 13:31; Status DC Info (Do NOT chart on this entry -- for MONITORING) 1 each PRN DAILY PRN MC SEE COMMENTS; Start 04/03/17 at 13:45; Stop 04/05/17 at 13:44 Albuterol/ Ipratropium (Duoneb) 3 ml RTQID NEB Last administered on 04/05/17 11:43; Start 04/04/17 at 12:00 Aspirin (Children'S Aspirin) 81 mg DAILY PO Last administered on 04/05/17 08: 50; Start 04/04/17 at 11:00 Metoprolol Succinate (Toprol Xl) 25 mg DAILY PO Last administered on 04/05/17 08:51; Start 04/04/17 at 11:00 Atorvastatin Calcium (Lipitor) 80 mg QHS PO Last administered on 04/04/17 19: 39; Start 04/04/17 at 21:00 Non-Formulary Medication 1 puff BID IH ; Start 04/04/17 at 21:00; Stop 04/04/17 at 21:00; Status DC Lisinopril (Prinivil) 5 mg DAILY PO Last administered on 04/05/17 08:51; Start 04/04/17 at 11:00 Albuterol Sulfate (Ventolin Neb Soln) 2.5 mg Q6HRS NEB ; Start 04/04/17 at 12:00 ; Stop 04/04/17 at 12:05; Status DC Budesonide (Pulmicort) 0.5 mg RTBID NEB Last administered on 04/05/17 07:58; Start 04/04/17 at 11:15 Albuterol Sulfate (Ventolin Neb Soln) 2.5 mg PRN Q2HR PRN NEB SHORTNESS OF BREATH; Start 04/06/17 at 12:00 Active Scripts Active Reported Atorvastatin Calcium 80 Mg Tablet 80 Mg PO HS Metoprolol Succinate ( Xl ) (Metoprolol Succinate) 25 Mg Tab.er.24h 1 Tab PO DAILY Ramipril 2.5 Mg Capsule 1 Cap PO DAILY Aspirin 81 Mg Tab.chew 1 Tab PO DAILY Advair 250-50 Diskus (Fluticasone/Salmeterol) 1 Each Disk.w.dev 1 Puff IH BID Vitals/I & O Vital Sign - Last 24 Hours 04/04/17 04/04/17 04/04/17 04/04/17 15:22 15:25 19:21 19:43 Temp 98.1 97.7 98.1 97.7 Pulse 68 74 Resp 18 18 B/P (MAP) 117/63 (81) 118/70 (86) Pulse Ox 94 96 96 O2 Delivery Room Air Room Air Room Air Room Air 04/04/17 04/04/17 04/05/17 04/05/17 20:00 22:18 02:48 07:00 Temp 98.8 98.5 98.1 98.8 98.5 98.1 Pulse 74 71 85 Resp 18 18 18 B/P (MAP) 114/63 (80) 124/55 (78) 104/63 (77) Pulse Ox 96 95 94 O2 Delivery Room Air Room Air Room Air Room Air 04/05/17 04/05/17 04/05/17 04/05/17 07:59 08:00 08:51 08:51 Pulse 85 85 B/P (MAP) 104/63 104/63 O2 Delivery Room Air Room Air 04/05/17 04/05/17 11:00 11:44 Temp 97.8 97.8 Pulse 78 Resp 18 B/P (MAP) 116/63 (80) Pulse Ox 97 O2 Delivery Room Air Room Air JACQUELINE MCCONNELL MD Apr 05, 2017 14:01
[2017-04-05 15:13] VITALS: BP 100/49
[2017-04-06] MEDS ORDERED: ALBUTEROL SULFATE 2.5 MG/3 ML NEBU. NEB PRN (12:00)
--- NOTE | 2017-04-09 12:03 | DS ---
DATE OF DISCHARGE: 04/05/2017 PRIMARY DIAGNOSIS: Syncope. ADDITIONAL DIAGNOSES: Confusion after episode of syncope and urinary incontinence, suggesting seizure additional diagnosis of history of cardiomyopathy, hypertension. CHIEF COMPLAINT AND HISTORY OF PRESENT ILLNESS: This 66-year-old white female got up to go to the bathroom at 8:00 a.m. on the day of admission, went back to bed stayed on bed for a while and her heard her moaning and he went in the room, found her sweaty, unconsciousness, unresponsive. She had had urinary incontinence during the episodes on the ambulance and the first thing she remember is briefly something in the ambulance and improving and the IV and became fully cognizant in the Emergency Room. SUMMARY OF STAY: The patient was admitted and placed on telemetry, had no significant erythremias during the stay. Pulmonary and Neurology saw her as well as Cardiology consultation. Best guess was that this was probably seizure activity. Because it was weekend no imaging could be done on the patient, so she was sent home on Thursday with plans on an outpatient an MRI of the brain, echocardiogram on Holter monitor to further pull this through together to decide on further treatment. DISPOSITION: The patient is discharged to home, regular diet. Activity as tolerated, office on Thursday. Discharge meds are listed on the med rec and have been addressed. ALLEN TORRES MD DR: JACKELYN/theodora JOB#: [id number] / [id number] ALLEN Awan MD
== END 2017-04-05 14:40 | disposition home or self-care (01) | DRG 100 ==
LOC: ER 09:45 → 6 SOUTH 11:50
PROVIDERS: ADMIT Family Medicine; ATTEND Family Medicine
DX: R56.9 Unspecified convulsions (principal); I21.4 Non-ST elevation (NSTEMI) myocardial infarction; I42.9 Cardiomyopathy, unspecified; J44.1 Chronic obstructive pulmonary disease with (acute) exacerbation; I50.9 Heart failure, unspecified; I11.0 Hypertensive heart disease with heart failure; E78.5 Hyperlipidemia, unspecified; F17.210 Nicotine dependence, cigarettes, uncomplicated; Z80.1 Family history of malignant neoplasm of trachea, bronchus and lung; Z80.42 Family history of malignant neoplasm of prostate; Z80.52 Family history of malignant neoplasm of bladder; Z90.49 Acquired absence of other specified parts of digestive tract; Z90.710 Acquired absence of both cervix and uterus; Z90.89 Acquired absence of other organs; R55 Syncope and collapse
CPT/HCPCS: 36415; 71010; 71275; 80053; 83735; 83880; 84484; 85025; 85610; 93005; 94250; 94640; 94760; 99285; J7512; J7613; J7620; J7626

== ENCOUNTER → 2017-04-08 | Outpatient (CLI) | payer MEDICARE ==
[2017-04-05 15:13] VITALS: BP 100/49
[~2017-04-08] MED LIST changes: +ASPI-630 PO; +ATORVASTATIN CA80 MG PO; +FLUT1DIS3 IH; +METO-239 PO; +RAMI2.5C PO
[2017-04-08] MEDS: GADOBUTROL 7.5 MMOL/7.5 ML VIAL IV ONE (09:52)
--- NOTE | 2017-04-08 11:04 | RAD ---
INDICATION: Seizure like activity at night. 2 episodes in the last 7 months. TECHNIQUE: Sagittal T1, axial T1, axial T2, axial FLAIR, axial T2 gradient, oblique coronal FLAIR, diffusion imaging with ADC map, postcontrast axial, and postcontrast coronal sequences are provided. 5 mL of intravenous Gadavist was administered without complication. No comparison is available. FINDINGS: The ventricles and sulci are within normal limits for age. There is a small old right parietal cortical infarct. A few areas of FLAIR hyperintensity in the supratentorial white matter are not specific but most suggestive of minimal small vessel ischemic disease. There is a small old right frontal deep white matter infarct. There is no restricted diffusion in a pattern to suggest an acute infarct. Sagittal midline structures are unremarkable. Intracranial flow voids are preserved. There is minimal ethmoid mucosal thickening. There is no pathologic enhancement. IMPRESSION: 1. Brain parenchymal volume loss and minimal probable small vessel ischemic disease. 2. No acute intracranial findings. Electronically signed by: Yaniv Lee MD (04/08/2017 11:01 AM) [id number]
== END | disposition home or self-care (01) ==
LOC: MRI 08:50
PROVIDERS: ATTEND Family Medicine
DX: R56.9 Unspecified convulsions (principal); R90.82 White matter disease, unspecified
CPT/HCPCS: 70553; A9585

== ENCOUNTER → 2017-04-13 | Outpatient (CLI) | payer MEDICARE ==
[2017-04-05 15:13] VITALS: BP 100/49
--- NOTE | 2017-04-13 14:39 | EEG ---
DATE OF SERVICE: 04/13/2017 ATTENDING PHYSICIAN: Allen Renee MD. This is EEG #[id number] performed on 04/13/2017. DATE OF STUDY: 04/13/2017. OBJECTIVE: The patient is a 66-year-old female with a seizure. DESCRIPTION: This is a digital study. Electrodes are placed according to the international 10-20 system. Bipolar and referential montages are available. Activation procedures typically include hyperventilation and intermittent photic stimulation. INTERPRETATION: The waking background consists of 9-10 Hz, 50-100 microvolt activity, symmetrically distributed over parietooccipital regions and reactive to eye opening. Hyperventilation and intermittent photic stimulation are noncontributory. Stage I sleep is achieved with normal electroencephalogram patterns. IMPRESSION: This electroencephalogram with the patient awake and asleep is within normal limits. There is no focal, paroxysmal, or epileptiform activity. Thank you for letting us help with the patient's care. SHANTA GRAVES MD DR: JAMAR/theodora JOB#: [id number] / [id number] ALLEN Awan MD
== END | disposition home or self-care (01) ==
LOC: RT 08:05
PROVIDERS: ATTEND Family Medicine
DX: F31.89 Other bipolar disorder (principal); R56.9 Unspecified convulsions; R06.4 Hyperventilation
CPT/HCPCS: 95816

== ENCOUNTER → 2017-05-01 | Outpatient (CLI) | payer MEDICARE ==
[2017-04-05 15:13] VITALS: BP 100/49
--- NOTE | 2017-05-01 14:07 | CARD ---
APPROVED REPORT EXAM: Two-dimensional and M-mode echocardiogram with Doppler and color Doppler. Other Information Quality : Good INDICATION COPD Aortic Valve Disease Dyspnea Fatigue RISK FACTORS Smoking 2D DIMENSIONS Left Atrium(2D)2.7 (1.6-4.0cm)IVSd1.0 (0.7-1.1cm) Aortic Root(2D)2.8 (2.0-3.7cm)LVDd4.1 (3.9-5.9cm) LVOT Diameter2.0 (1.8-2.4cm)PWd1.0 (0.7-1.1cm) LVDs2.7 (2.5-4.0cm)FS (%) 35.0 % SV49.0 mlLVEF(%)65.0 (>50%) Aortic Valve AoV Peak Demetrio.126.7cm/sAoV VTI28.8cm AO Peak GR.6.4mmHgLVOT Peak Demetrio.79.7cm/s AO Mean GR.3mmHgAVA (VMAX)1.91cm2 KATINA (VTI)1.80cm2 Mitral Valve MV E Ubymygzb54.2cm/sMV DECEL [id number] MV A Cuyjapnc64.4cm/sE/A Ratio1.3 Tricuspid Valve TR P. [id number]/sRAP [id number] TR Peak Gr.[id number] LEFT VENTRICLE The left ventricle is normal size. There is normal left ventricular wall thickness. Left ventricle sy stolic function is normal. The Ejection Fraction is 65%. There is normal LV segmental wall motion. Tr ansmitral Doppler flow pattern is Grade II-pseudonormal filling dynamics. RIGHT VENTRICLE The right ventricle is normal size. There is normal right ventricular wall thickness. The right ventr icular systolic function is normal. ATRIA The left atrium size is normal. The right atrium size is normal. The interatrial septum is intact wit h no evidence for an atrial septal defect or patent foramen ovale as noted on 2-D or Doppler imaging. AORTIC VALVE The aortic valve is mildly thickened but opens well. Doppler and Color Flow revealed no significant a ortic regurgitation. There is no significant aortic valvular stenosis. MITRAL VALVE The mitral valve is mildly calcified but opens well. There is no evidence of mitral valve prolapse. T here is no mitral valve stenosis. Doppler and Color Flow revealed no mitral valve regurgitation noted . TRICUSPID VALVE The tricuspid valve is normal in structure Doppler and Color Flow revealed trace to mild tricuspid re gurgitation. There is no pulmonary hypertension. The PA pressure was estimated at 14 mmHg. There is n o tricuspid valve stenosis. PULMONIC VALVE The pulmonary valve is normal in structure and function. Doppler and Color Flow revealed no pulmonic valvular regurgitation. There is no pulmonic valvular stenosis. GREAT VESSELS The aortic root is normal in size. The ascending aorta is normal in size. The IVC is normal in size a nd collapses >50% with inspiration. PERICARDIAL EFFUSION There is no pleural effusion. There is no evidence of significant pericardial effusion. Critical Notification Critical Value: No <Conclusion> Left ventricle systolic function is normal. The Ejection Fraction is 65%. Transmitral Doppler flow pattern is Grade II-pseudonormal filling dynamics. The left atrium size is normal. The right atrium size is normal. The aortic valve is mildly thickened but opens well. The mitral valve is mildly calcified but opens well. Doppler and Color Flow revealed trace to mild tricuspid regurgitation. There is no pulmonary hypertension. The PA pressure was estimated at 14 mmHg. The pulmonary valve is normal in structure and function. There is no evidence of significant pericardial effusion.
== END | disposition home or self-care (01) ==
LOC: ECHO 09:44
PROVIDERS: ATTEND Family Medicine
DX: I07.1 Rheumatic tricuspid insufficiency (principal); J44.9 Chronic obstructive pulmonary disease, unspecified; I35.8 Other nonrheumatic aortic valve disorders; R06.00 Dyspnea, unspecified; R53.83 Other fatigue; R56.9 Unspecified convulsions; F17.200 Nicotine dependence, unspecified, uncomplicated
CPT/HCPCS: 93306